=== PATIENT | male | born 1960 | race Caucasian/White ===

== ENCOUNTER 2022-06-01 23:07 | Emergency (ER) | payer BC, OTHER ==
--- NOTE | 2022-06-01 23:26 | ED Fall/Injury ---
General Stated Complaint: FALL, FACIAL LAC Source: patient, other (friends) Exam Limitations: intoxication History of Present Illness Date Seen by Provider: Jun 01, 2022 Time Seen by Provider: 23:07 Initial Comments 61 yo male presenting with complaints of tripping and falling forward on his face. He has been drinking alcohol tonight. Patient and his friends both deny that he had a loss of consciousness. He is visiting from [place] and was watching football and drinking alcohol. He fell approximately 45 minutes prior to arrival. Denies any other injuries. Denies taking blood thinners. States his last tetanus was less than 5 years. Occurred: this evening Severity: moderate Injuries/Pain Location: face Context: tripped Loss of Consciousness: no loss of consciousness Modifying Factors: Worse With Movement (pain to nose and face) Associated Symptoms (Fall): No Abdominal Pain, No Chest Pain; Confusion (alcohol intoxication), Headache; No Nausea/Vomiting, No Neck Pain, No Ringing in Ears, No Seizures, No Shortness of Air; Slurred Speech, Trouble Walking; No Vision Changes Allergies and Home Medications Allergies Coded Allergies: No Known Drug Allergies (Unverified , 06/01/22) Patient Home Medication List Home Medication List Reviewed: Yes Review of Systems Review of Systems Constitutional: No chills, No fever Eyes: No Symptoms Reported Ears, Nose, Mouth, Throat: denies ear pain, denies ear discharge; nose pain, epistaxis; denies mouth pain Respiratory: No cough Cardiovascular: No chest pain Gastrointestinal: No nausea, No vomiting Genitourinary: no symptoms reported Musculoskeletal: no symptoms reported Skin: see HPI (swelling to nose and superficial abrasion) Past Iukrzlp-Hgqsvz-Bholju Hx Patient Social History Tobacco Use?: Yes Alcohol Use?: Yes Physical Exam Vital Signs Vital Signs - First Documented 06/01/22 23:08 Temp 36.7 Pulse 91 Resp 18 B/P (MAP) 137/77 (97) Pulse Ox 96 O2 Delivery Room Air Capillary Refill : Height, Weight, BMI Height: '" Weight: lbs. oz. kg; BMI Method: General Appearance: no apparent distress HEENT: PERRL/EOMI, TMs normal, pharynx normal, other (blood in his mouth, nasal swelling and superficial abrasion to nose, epistaxis with bleeding controlled and clots in place. No septal hematoma) Neck: full range of motion, supple Cardiovascular: normal peripheral pulses, regular rate, rhythm Respiratory: chest non-tender, lungs clear, normal breath sounds, no respiratory distress, no accessory muscle use Gastrointestinal: normal bowel sounds, non tender, soft, no pulsatile mass Extremities: normal range of motion, non-tender, normal capillary refill Neurologic/Psychiatric: processor grain II-XII nml as tested, no motor/sensory deficits, alert, oriented x 3 Skin: warm/dry, other (swelling to nose, abrasion to bridge of nose) Progress/Results/Core Measures Results/Orders My Orders Orders - VERO LONDON MD Ct Head/Face/Cervical Wo (06/01/22 23:18) Vital Signs/I&O 06/01/22 06/02/22 23:08 00:30 Temp 36.7 36.7 Pulse 91 91 Resp 18 18 B/P (MAP) 137/77 (97) 137/77 Pulse Ox 96 96 O2 Delivery Room Air Room Air Progress Progress Note #1: Progress Note Advised pt that he needs CT scan to evaluate how badly he might have injured his face. Order CT of head, face and cervical spine to evaluate for intracranial hemorrhage, skull fracture, cervical spine fracture, facial bone fractures. Progress Note #2: Time: 23:53 Progress Note On my review of images of the head, face and cervical spine he has comminuted and displaced nasal bone fracture. No definite skull fracture or intracranial hemorrhage. Cervical spine straightening to go with spasms. No acute fracture. Counseled on nasal bone fracture and management. Counseled on follow-up and return precautions. Progress Note #3: Time: 00:22 Progress Note Radiology [facility] reading of CT scan images shows comminuted displaced nasal bone fractures without acute intracranial hemorrhage, skull fracture, cervical spine fracture or malalignment. Discharge to home with nasal bone fracture and follow up and return precautions. Diagnostic Imaging Diagonstic Imaging: CT Plain Films/CT/US/NM/MRI: facial bones, c-spine, head Comments CT head, face, cervical spine without contrast Negative for mass, mass-effect, or intracranial hemorrhage. Negative for skull fracture or mastoid effusions. Comminuted and displaced bilateral nasal bone fractures. No acute fracture or malalignment of cervical spine. Read by Dr. Rafita Andersen at [phone] faxed at [phone] Reviewed: [facility] Departure Impression Primary Impression: Abrasion of nose, initial encounter Additional Impressions: Epistaxis Facial contusion Qualified Codes: S00.83XA - Contusion of other part of head, initial encounter Fall Qualified Codes: W19.XXXA - Unspecified fall, initial encounter Alcohol intoxication Qualified Codes: F10.920 - Alcohol use, unspecified with intoxication, uncomplicated Closed fracture nasal bone Qualified Codes: S02.2XXA - Fracture of nasal bones, initial encounter for closed fracture Disposition: HOME, SELF-CARE Condition: Stable Departure-Patient Inst. Decision time for Depature: 00:22 Referrals: [facility] [place] Patient Instructions: Minor Head Injury, Adult ED, Preventing Falls ED, Nosebleeds ED, Alcohol Intoxication ED, Nose Fracture ED, Abrasions ED Add. Discharge Instructions: Keep head elevated 30-45 degrees when laying down. This will help with swelling and bleeding from the nose fracture and facial contusion. May apply ice 20-30 minutes every few hours as needed to help with swelling and pain. Follow up with primary care or Ear, Nose and Throat doctor about the nasal bone fracture within the next week. May take Acetaminophen 650 mg every 6 hours as needed for pain. VERO LONDON MD Jun 01, 2022 23:26
[2022-06-02 00:30] VITALS: BP 137/77
--- NOTE | 2022-06-02 07:45 | Diagnostic Imaging Report ---
CLINICAL INDICATION: Patient fell onto concrete and hit his face. Patient has swollen nose. Exam: Axial Head CT without IV contrast with sagittal and coronal reformations. Axial Maxillofacial CT scan without IV contrast with sagittal and coronal reformations. Axial CT scan of the cervical spine with sagittal and coronal reformations. Auto Exposure Controls were utilized during the CT exam to meet ALARA standards for radiation dose reduction. Comparison: None. Findings: Head and maxillofacial CT: There is no evidence of acute cerebral infarct, intracranial hemorrhage, or gross mass effect. The brain parenchymal volume appears appropriate for patient's age. There is normal hadley-white matter distinction. There is no significant midline shift or herniation. There is no evidence of hydrocephalus. The basal cisterns are unremarkable. There are comminuted and displaced fractures involving the right and left nasal bones. There is also impacted fracture of the anterior aspects of the nasal bones. There is a fracture of the frontal process of the right maxilla. There is a fracture of the bony nasal septum with air located in the region. There is no other skull or maxillofacial fracture. There is mucosal thickening and fluid involving the nasal cavity. There is mild mucosal thickening involving ethmoid sinus. There is soft tissue swelling seen in the region of the upper lip and nasal bone region. Orbits and globes are intact. Cervical spine CT scan: There is no acute cervical spine fracture or dislocation. There is straightening of the cervical spine posture. There is cervical spine vertebral body spurs and facet arthropathy. There is severe bilateral C5-C6 and C6-C7 neural foramen narrowing due to uncinate spurs. The neck soft tissue structures show no significant abnormality. Visualized upper lung naqvi are clear. IMPRESSION: 1: There is no evidence of acute intracranial hemorrhage. 2: There is comminuted depressed, and displaced bilateral nasal bone fractures. There is a fracture of the frontal process of the right maxilla. There is a fracture of the bony nasal septum. 3: There is no other skull or maxillofacial fracture. Orbits and globes are intact. 4: There is no acute cervical spine fracture or dislocation. I agree with [facility] report. Dictated by: Dictated on workstation # [id number]
== END 2022-06-02 00:32 | disposition home or self-care (01) ==
LOC: ER FS 23:16
DX: S02.2XXA Fracture of nasal bones, initial encounter for closed fracture (principal); F10.129 Alcohol abuse with intoxication, unspecified; Z72.0 Tobacco use; Z28.310 Unvaccinated for COVID-19; W01.0XXA Fall on same level from slipping, tripping and stumbling without subsequent striking against object, initial encounter
CPT/HCPCS: 70450; 70486; 72125